=== PATIENT | female | born 1950 | race Caucasian/White ===

== ENCOUNTER → 2018-02-10 13:26 | Outpatient (CLI) | payer MEDICARE, OTHER, SELFPAY ==
--- NOTE | 2018-02-10 | DI.ECHO.S_ITS ---
[place] [facility]---------+ [facility] +---------+ : : [address] : : : : [id number] : : : : Phone: [phone]+ Echocardiogram Report + + :Name: LIU BOUCHER Study Date: 02/10/2018 Height: 64 in : :[facility] Weight: 140 lb : : Gender: Female BSA: 1.7 m2 : :: 1950 Age: 67 yrs BP: 146/86 mmHg: :Reason For Study: Murmur : : Performed By: Neelima Khan : :Referring: JESSY HUTCHINSON : + + Interpretation Summary The left ventricle is normal in size, wall thickness, and systolic function without any focal wall motion abnormalities. The ejection fraction is estimated to be 60-65%. Assessment of diastolic parameters indicates a relaxation abnormality of the left ventricle, consistent with normal filling pressures. The right ventricle grossly appears normal in size with probable normal systolic function. The left atrial size is normal. Right atrial size is normal. There is no significant valvular heart disease. The aortic root is normal size. Procedure: A two-dimensional transthoracic echocardiogram with color flow and Doppler was performed. The study quality was technically adequate. There is no prior echocardiogram noted for this patient. The patient was in normal sinus rhythm during the exam. The patient was in first degree heart block during the exam. The patient had a bundle branch block rhythm during the exam. Left Ventricle: The left ventricle is normal in size, wall thickness, and systolic function without any focal wall motion abnormalities. The ejection fraction is estimated to be 60-65%. Assessment of diastolic parameters indicates a relaxation abnormality of the left ventricle, consistent with normal filling pressures. Right Ventricle: The right ventricle grossly appears normal in size with probable normal systolic function. Atria: The left atrial size is normal. Right atrial size is normal. The interatrial septum is intact with no evidence for an atrial septal defect. Mitral Valve: The mitral valve is normal in structure and function. There is no mitral regurgitation noted. Aortic Valve: The aortic valve is not well visualized. The aortic valve opens well. There is trace aortic regurgitation. Tricuspid Valve: The tricuspid valve is normal in structure and function. No tricuspid regurgitation. Pulmonic Valve: The pulmonic valve is not well seen, but is grossly normal. There is no pulmonic valvular regurgitation. There is no significant valvular heart disease. Great Vessels: The aortic root is normal size. The dimensions of the ascending aorta are normal. The IVC is of normal diameter and collapses greater than 50% with a sniff. This suggests a low right atrial pressure of 3 mm Hg. Pericardium/ Pleura There is no pericardial effusion. There is no pleural effusion. MMode/2D Measurements & Calculations LVIDd: 3.5 cm Ao root diam: 2.8 cm LVIDs: 2.2 cm Aortic Jxn: 2.7 cm FS: 36.9 % asc Aorta Diam: 2.9 cm IVSd: 0.79 cm Ao Arch Diam (Prox Trans): 2.3 cm LVPWd: 0.89 cm LV sparks. diameter/BSA (cm/m^2): 2.1 LV sys. diameter/BSA (cm/m^2): 1.3 LA dimension: 2.7 cm RA long axis: 4.7 cm LA A2 area: 15.4 cm2 RA area: 15.3 cm2 LA A4 area: 15.1 cm2 RA vol: 43.0 ml LA length (vol): 5.1 cm RA : 25.6 ml/m2 LA vol: 38.8 ml IVC diam: 1.3 cm LA vol index: 23.1 ml/m2 Doppler Measurements & Calculations Ao V2 max: 144.5 cm/sec MV E max tra: 75.9 cm/sec Ao V2 mean: 98.9 cm/sec MV A max tra: 104.9 cm/sec Ao max P.4 mmHg MV E/A: 0.72 Ao mean P.4 mmHg Med Peak E' Tra: 5.3 cm/sec Ao V2 VTI: 28.5 cm E/E' med: 14.4 Lat Peak E' Tra: 8.2 cm/sec E/E' lat: 9.2 E/e' average: 11.8 MV dec time: 0.21 sec MV P1/2t: 62.8 msec PA V2 max: 93.5 cm/sec MV P1/2t max tra: 75.4 cm/sec PA V2 mean: 59.2 cm/sec MVA(P1/2t): 3.5 cm2 PA mean P.7 mmHg PA Accel Time: 0.19 sec Reading Physician:GEORGIA
== END ==
PROVIDERS: PCP Physician Assistant; Visit Provider Physician Assistant
DX: R01.1 Cardiac murmur, unspecified (principal)
CPT/HCPCS: 93306

== ENCOUNTER → 2022-12-04 09:06 | Outpatient (CLI) | payer MEDICARE, OTHER, SELFPAY ==
--- NOTE | 2022-12-04 | DI.ECHO.S_ITS ---
[place] +---------+ Hospital +---------+ : : [address] : : : : [id number] : : : : Phone: [phone]+ Echocardiogram Report + + :Name: LIU BOUCHER Study Date: 12/04/2022 Height: 63 in : :[facility] ReadingLocation: Weight: 137 lb : : Gender: Female BSA: 1.6 m2 : :: 1950 Age: 72 yrs BP: 149/86 mmHg: :Reason For Study: HYPERTENSION : :Ordering Physician: MARKUS, : :VANNESA Performed By: Zainab Marie : :Referring: VANNESA RUBIN : + + Interpretation Summary 1) Normal left ventricular thickness, size, wall motion, and systolic function (EF 60-65%). 2) Normal right ventricular size and function. 3) No significant valvular abnormalities. 4) Compared to the Echo done 02/10/2018, no significant change. Procedure: A two-dimensional transthoracic echocardiogram with color flow and Doppler was performed. The study quality was technically adequate. Comparison is made with the echocardiogram of 02/10/2018. The patient was in sinus rhythm with heart rates between 57-83 bpm during the exam. Left Ventricle: The left ventricle is normal in size and wall thickness. The ejection fraction is estimated to be 60-65%. Left ventricular systolic function appears normal without focal wall motion abnormalities. Diastolic parameters suggest a relaxation abnormality of the left ventricle, consistent with probable normal filling pressures. Right Ventricle: The right ventricle is normal in size and function. Atria: The left atrial size is normal. Right atrial size is normal. There is no Doppler evidence for an interatrial shunt. Mitral Valve: The mitral valve is normal in structure and function. There is no mitral regurgitation noted. Aortic Valve: The aortic valve is trileaflet. The aortic valve opens well. There is no aortic valve stenosis. There is trace aortic regurgitation. Tricuspid Valve: The tricuspid valve is normal in structure and function. There is trace tricuspid regurgitation. Pulmonary artery pressures cannot be estimated because of the lack of a measurable TR jet velocity. Pulmonic Valve: The pulmonic valve is not well seen, but is grossly normal. There is no pulmonic valvular regurgitation. Great Vessels: The aortic root is normal size. The dimensions of the ascending aorta are normal. The IVC is of normal diameter and collapses greater than 50% with a sniff. This suggests a low right atrial pressure of 3 mm Hg. Pericardium/ Pleura There is no pericardial effusion. There is no pleural effusion. MMode/2D Measurements & Calculations LVIDd: 3.4 cm LVOT diam: 1.9 cm LVIDs: 2.5 cm Ao root diam: 2.7 cm FS: 27.2 % asc Aorta Diam: 2.7 cm IVSd: 0.86 cm LVPWd: 0.80 cm LV sparks. diameter/BSA (cm/m^2): 2.1 LV sys. diameter/BSA (cm/m^2): 1.5 LA A2 area: 16.4 cm2 RA long axis: 4.0 cm LA A4 area: 15.0 cm2 RA area: 10.9 cm2 LA length (vol): 4.9 cm RA vol: 25.5 ml LA vol: 42.3 ml RA : 15.5 ml/m2 LA vol index: 25.7 ml/m2 IVC diam: 1.7 cm RVD1 (basal): 3.4 cm RVD2 (mid): 2.5 cm TAPSE: 1.9 cm Doppler Measurements & Calculations Ao V2 max: 119.7 cm/sec LVOT Max Tra: 93.3 cm/sec Ao V2 mean: 86.6 cm/sec LV V1 max P.5 mmHg Ao max P.7 mmHg LV V1 VTI: 22.7 cm Ao mean P.3 mmHg SHAKIRA(I,D): 2.4 cm2 Ao V2 VTI: 27.0 cm SHAKIRA(V,D): 2.2 cm2 sev ratio: 0.84 SHAKIRA indexed to BSA (cm^2/m^2): 1.5 MV E max tra: 86.9 cm/sec PA V2 max: 78.9 cm/sec MV A max tra: 85.2 cm/sec PA V2 mean: 56.4 cm/sec MV E/A: 1.0 PA mean P.4 mmHg Med Peak E' Tra: 6.0 cm/sec PA pr(Accel): 27.6 mmHg E/E' med: 14.6 Lat Peak E' Tra: 7.1 cm/sec E/E' lat: 12.3 E/e' average: 13.4 MV dec time: 0.20 sec SV(LVOT): 65.5 ml Reading Physician:12:59 PM
== END ==
PROVIDERS: PCP Physician Assistant; Referring Provider Internal Medicine Cardiovascular Disease; Visit Provider Internal Medicine Cardiovascular Disease
DX: I10 Essential (primary) hypertension (principal)
CPT/HCPCS: 93306

== ENCOUNTER → 2023-05-21 12:32 | Outpatient (CLI) | payer MEDICARE, OTHER, SELFPAY ==
--- NOTE | 2023-05-21 12:35 | DI.US.S_ITS ---
PROCEDURE: US ABDOMEN LIMITED INDICATIONS: SOFT TISSUE MASS IN GROIN TECHNIQUE: Real-time focused scanning was performed of the inguinal region, with image documentation. COMPARISON: None. FINDINGS: By history there is a palpable abnormality in the left groin. Ultrasound findings show the palpable abnormality to correspond to 2 normal-appearing lymph nodes measuring 1.9 x 1.1 x 1.0 centimeters and 1.3 x 1.1 x 0.6 centimeters. No other solid or cystic lesions are identified. IMPRESSION: 1. Palpable abnormality corresponds to 2 lymph nodes in the left groin measuring 1.9 and 1.3 centimeters respectively. Dictated by: Todd Conner M.D. on 05/21/2023 at 15:48 Approved by: Todd Conner M.D. on 05/21/2023 at 15:51
== END ==
PROVIDERS: PCP Nurse Practitioner Family; Referring Provider Nurse Practitioner Family; Visit Provider Nurse Practitioner Family
DX: R19.09 Other intra-abdominal and pelvic swelling, mass and lump (principal)
CPT/HCPCS: 76705

== ENCOUNTER → 2024-04-26 08:45 | Outpatient (CLI) | payer MEDICARE, OTHER, SELFPAY ==
--- NOTE | 2024-04-26 08:47 | DI.US.S_ITS ---
PROCEDURE: US ARTERIAL DUPLEX LE BI INDICATIONS: PURPLE DISCOLORATION OF FEET AND TOES TECHNIQUE: Color and pulse Doppler interrogation was performed of both lower extremity arterial systems, with image documentation. COMPARISON: None. FINDINGS: Right lower extremity: Common iliac artery (distal): 130 cm/sec, with biphasic flow External iliac artery (proximal): 194 cm/sec, with triphasic flow External iliac artery (distal): 215 cm/sec, with triphasic flow Common femoral artery: 200 cm/sec, with triphasic flow. Deep femoral artery: 166 cm/sec, with tri-/biphasic flow. Proximal superficial femoral artery: 133 cm/sec, with triphasic flow. Mid superficial femoral artery: 110 cm/sec, with triphasic flow. Distal superficial femoral artery: 95 cm/sec, with triphasic flow. Popliteal artery: 103 cm/sec, with triphasic flow. Posterior tibial artery: 65 cm/sec, with triphasic flow. Anterior tibial artery/dorsalis pedis: 58 cm/sec, with triphasic flow. Pa-scale imaging description: Moderate degree of partially calcified plaque involving the distal right common femoral artery with elevated velocity at this level. Mild degree of plaque throughout the remainder of the right lower extremity arterial system without significant stenosis. Left lower extremity: Common femoral artery: 169 cm/sec, with triphasic flow. Deep femoral artery: 124 cm/sec, with tri-/biphasic flow. Proximal superficial femoral artery: 138 cm/sec, with triphasic flow. Mid superficial femoral artery: 114 cm/sec, with triphasic flow. Distal superficial femoral artery: 130 cm/sec, with triphasic flow. Popliteal artery: 82 cm/sec, with triphasic flow. Posterior tibial artery: 70 cm/sec, with triphasic flow. Anterior tibial artery/dorsalis pedis: 85 cm/sec, with triphasic flow. Pa-scale imaging description: Mild degree of plaque throughout the left lower extremity arterial system without significant stenosis. IMPRESSION: 1. Eccentric partially calcified plaque involving the distal right common femoral artery resulting in 20-49% stenosis. 2. No other significant stenosis involving bilateral lower extremity arterial systems. Dictated by: Oscar Brunner M.D. on 04/26/2024 at 10:49 Approved by: Oscar Brunner M.D. on 04/26/2024 at 10:58
== END ==
PROVIDERS: PCP Nurse Practitioner Family; Referring Provider Nurse Practitioner Family; Visit Provider Nurse Practitioner Family
DX: I70.201 Unspecified atherosclerosis of native arteries of extremities, right leg (principal); I99.9 Unspecified disorder of circulatory system; R20.9 Unspecified disturbances of skin sensation; R09.89 Other specified symptoms and signs involving the circulatory and respiratory systems
CPT/HCPCS: 93925

== ENCOUNTER 2024-07-18 15:36 | Emergency (ER) | payer MEDICARE, OTHER, SELFPAY ==
[2024-07-18] VITALS (16 sets, daily range): BP systolic 141–194; BP diastolic 70–96; PULSE 66–86; RESP 18–24; TEMP 36.8; O2SAT 97–99; BMI 24.7
--- NOTE | 2024-07-18 16:00 | EKG_ITS ---
[address] [address] [place] [address] Test Date: 2024-07-18 Pat Name: Meg Rucker Department: [facility] Room: Gender: Female Teletype Installer: maria teresa : 1950 Requested By: Order Number: [id number] Reading MD: Sebas Aldana MD Measurements Intervals [place] Rate: 81 P: AL: 278 QRS: -46 QRSD: 78 T: 16 QT: 382 QTc: 443 Interpretive Statements Sinus rhythm with 1st degree AV block with premature ventricular complexes or fusion complexes Left axis deviation Low voltage QRS Inferior infarct , age undetermined Cannot rule out Anteroseptal infarct , age undetermined NO PRIOR TRACING Baseline artifact affects interpretation Electronically Signed On 07-19-2024 8:03:13 PST by Sebas Aldana MD
[2024-07-18 16:15] LABS: Add Manual Diff / Slide Review NO; Basophils Absolute Auto 0 /uL (0-100); Basophils Percent Auto 0.2 % (0-2); Eosinophils Absolute Auto 100 /uL (0-450); Eosinophils Percent Auto 1.8 % (2-4); Hematocrit 41.2 % (36-46); Hemoglobin 13.5 g/dL (12.0-16.0); Lymphocytes Absolute Auto 2200 /uL (1100-4500); Lymphocytes Percent Auto 32.7 % (25-40); Mean Corpuscular HGB Conc 32.6 % (30-36); Mean Corpuscular Volume 91.9 fL (80-100); Monocytes Absolute Auto 700 /uL (0-900); Monocytes Percent Auto 10.2 % (3-14); Neutrophils Absolute Auto 3700 /uL (1500-7000); Neutrophils Percent Auto 55.1 % (50-75); Platelet Count 207 X10^3/uL (150-400); Red Blood Cell Count 4.49 X10^6/uL (4.0-5.2); Red Cell Distribution Width 13.4 % (11.6-14.8); White Blood Cell Count 6.7 X10^3/uL (4.5-11.0)
[2024-07-18 16:28] LABS: Alanine Aminotransferase 18 IU/L (<35); Albumin 4.4 g/dL (3.5-5.0); Albumin Globulin Ratio 1.5 (1.0-2.8); Alkaline Phosphatase 99 U/L (38-126); Aspartate Aminotransferase 30 IU/L (14-36); Bilirubin Total 0.2 mg/dL (0.2-1.3); Blood Urea Nitrogen 20 mg/dL (7-17); Calcium 9.5 mg/dL (8.4-10.2); Carbon Dioxide 30 mmol/L (22-32); Chloride 100 mmol/L (98-107); Estimated Glomerular Filt Rate > 60 mL/min (>60); Glucose 90 mg/dL (80-110); HEMOLYSIS 18 (0-50); Potassium 4.5 mmol/L (3.4-5.1); Sodium 137 mmol/L (137-145); Total Protein 7.4 g/dL (6.3-8.2)
--- NOTE | 2024-07-18 16:33 | PC.NURSE ---
Pt smile asymmetrical. Reports this is normal at her baseline due to her cerebral palsy.
[2024-07-18 16:40] LABS: Troponin I < 0.012 ng/mL (0.01-0.034)
--- NOTE | 2024-07-18 17:04 | ED.DIZZY ---
HPI - Dizziness <Mayda Oden DO - Last Filed: 07/18/24 17:08> General Chief Complaint: Dizziness Stated Complaint: Elevated BP Time Seen by Provider: 07/18/24 17:03 Source: patient, RN notes reviewed and old records reviewed Mode of arrival: Ambulatory Limitations: no limitations Related Data Allergies Allergy/AdvReac Type Severity Reaction Status Date / Time Sulfa (Sulfonamide Allergy Anaphylaxis Verified 07/18/24 15:53 Antibiotics) <Bang Baker MD - Last Filed: 07/18/24 19:11> History of Present Illness HPI Narrative: 74-year-old female here for evaluation of dizziness and concerns for elevated blood pressure readings at home. Review of Systems <Mayda Oden DO - Last Filed: 07/18/24 17:08> Review of Systems ROS Unobtainable: All systems reviewed & are unremarkable except as noted in HPI and below Patient History <Mayda Oden DO - Last Filed: 07/18/24 17:08> Social History Smoking Status: Never smoker Smoking Status: Never smoker Exam <Mayda Oden DO - Last Filed: 07/18/24 17:08> Initial Vital Signs Initial Vital Signs: Vital Signs Temperature 98.2 F 07/18/24 15:48 Pulse Rate 86 07/18/24 15:48 Respiratory Rate 18 07/18/24 15:48 Blood Pressure 141/75 H 07/18/24 15:48 Pulse Oximetry 97 07/18/24 15:48 Oxygen Delivery Method Room Air 07/18/24 15:48 <Bang Baker MD - Last Filed: 07/18/24 19:11> Initial Vital Signs Initial Vital Signs: Vital Signs Temperature 98.2 F 07/18/24 15:48 Pulse Rate 86 07/18/24 15:48 Respiratory Rate 18 07/18/24 15:48 Blood Pressure 141/75 H 07/18/24 15:48 Pulse Oximetry 97 07/18/24 15:48 Oxygen Delivery Method Room Air 07/18/24 15:48 Course <Mayda Oden DO - Last Filed: 07/18/24 17:08> Orders Ordered: ED Orders 07/18/24 15:54 EKG-12 Lead Stat 07/18/24 16:00 Complete Blood Count AUTO DIFF Stat Comprehensive Metabolic Panel Stat Troponin I Stat Vital Signs Vital signs: Vital Signs - 8 hr 07/18/24 15:48 07/18/24 16:02 07/18/24 16:03 Temperature 98.2 F Pulse Rate 86 76 Respiratory Rate 18 Blood Pressure 141/75 H 194/96 H Pulse Oximetry 97 98 Oxygen Delivery Method Room Air 07/18/24 16:20 07/18/24 16:20 07/18/24 16:30 Temperature Pulse Rate 74 68 Respiratory Rate 22 22 Blood Pressure 175/83 H Pulse Oximetry 98 99 Oxygen Delivery Method 07/18/24 16:30 07/18/24 17:00 07/18/24 17:01 Temperature Pulse Rate 66 Respiratory Rate 24 Blood Pressure 168/80 H 181/70 H Pulse Oximetry 98 Oxygen Delivery Method 07/18/24 17:01 07/18/24 17:20 07/18/24 17:20 Temperature Pulse Rate 69 68 Respiratory Rate 22 21 Blood Pressure 171/70 H Pulse Oximetry 98 99 Oxygen Delivery Method Room Air 07/18/24 17:30 07/18/24 17:30 07/18/24 18:00 Temperature Pulse Rate 69 Respiratory Rate 21 Blood Pressure 153/71 H 164/77 H Pulse Oximetry 99 Oxygen Delivery Method 07/18/24 18:00 07/18/24 18:30 07/18/24 18:30 Temperature Pulse Rate 70 66 Respiratory Rate 20 22 Blood Pressure 156/87 H Pulse Oximetry 98 98 Oxygen Delivery Method 07/18/24 18:43 07/18/24 18:43 Temperature Pulse Rate 74 Respiratory Rate 24 Blood Pressure 185/85 H Pulse Oximetry 99 Oxygen Delivery Method Room Air <Bang Baker MD - Last Filed: 07/18/24 19:11> Orders Ordered: ED Orders 07/18/24 15:54 EKG-12 Lead Stat 07/18/24 16:00 Complete Blood Count AUTO DIFF Stat Comprehensive Metabolic Panel Stat Troponin I Stat Vital Signs Vital signs: Vital Signs - 8 hr 07/18/24 15:48 07/18/24 16:02 07/18/24 16:03 Temperature 98.2 F Pulse Rate 86 76 Respiratory Rate 18 Blood Pressure 141/75 H 194/96 H Pulse Oximetry 97 98 Oxygen Delivery Method Room Air 07/18/24 16:20 07/18/24 16:20 07/18/24 16:30 Temperature Pulse Rate 74 68 Respiratory Rate 22 22 Blood Pressure 175/83 H Pulse Oximetry 98 99 Oxygen Delivery Method 07/18/24 16:30 07/18/24 17:00 07/18/24 17:01 Temperature Pulse Rate 66 Respiratory Rate 24 Blood Pressure 168/80 H 181/70 H Pulse Oximetry 98 Oxygen Delivery Method 07/18/24 17:01 07/18/24 17:20 07/18/24 17:20 Temperature Pulse Rate 69 68 Respiratory Rate 22 21 Blood Pressure 171/70 H Pulse Oximetry 98 99 Oxygen Delivery Method Room Air 07/18/24 17:30 07/18/24 17:30 07/18/24 18:00 Temperature Pulse Rate 69 Respiratory Rate 21 Blood Pressure 153/71 H 164/77 H Pulse Oximetry 99 Oxygen Delivery Method 07/18/24 18:00 07/18/24 18:30 07/18/24 18:30 Temperature Pulse Rate 70 66 Respiratory Rate 20 22 Blood Pressure 156/87 H Pulse Oximetry 98 98 Oxygen Delivery Method 07/18/24 18:43 07/18/24 18:43 Temperature Pulse Rate 74 Respiratory Rate 24 Blood Pressure 185/85 H Pulse Oximetry 99 Oxygen Delivery Method Room Air MDM - Dizziness <Mayda Oden, DO - Last Filed: 07/18/24 17:08> Lab Data 07/18/24 16:00 07/18/24 16:00 Labs: Lab Results 07/18/24 Range/Units 16:00 WBC 6.7 (4.5-11.0) X10^3/uL RBC 4.49 (4.0-5.2) X10^6/uL Hgb 13.5 (12.0-16.0) g/dL Hct 41.2 (36-46) % MCV 91.9 (80-100) fL MCH 30.0 (26-34) PG MCHC 32.6 (30-36) % RDW 13.4 (11.6-14.8) % Plt Count 207 (150-400) X10^3/uL Neut % (Auto) 55.1 (50-75) % Lymph % (Auto) 32.7 (25-40) % [place] % (Auto) 10.2 (3-14) % Eos % (Auto) 1.8 L (2-4) % Baso % (Auto) 0.2 (0-2) % Neut # (Auto) 3700 (8091-7811) /uL Lymph # (Auto) 2200 (9785-6843) /uL [place] # (Auto) 700 (0-900) /uL Eos # (Auto) 100 (0-450) /uL Baso # (Auto) 0 (0-100) /uL Sodium 137 (137-145) mmol/L Potassium 4.5 (3.4-5.1) mmol/L Chloride 100 (98-107) mmol/L Carbon Dioxide 30 (22-32) mmol/L BUN 20 H (7-17) mg/dL Creatinine 0.91 (0.52-1.04) mg/dL Estimated GFR > 60 (>60) mL/min BUN/Creatinine Ratio 22.0 (6-22) Glucose 90 (80-110) mg/dL Calcium 9.5 (8.4-10.2) mg/dL Total Bilirubin 0.2 (0.2-1.3) mg/dL AST 30 (14-36) IU/L ALT 18 (<35) IU/L Alkaline Phosphatase 99 (38-126) U/L Troponin I < 0.012 (0.01-0.034) ng/mL Total Protein 7.4 (6.3-8.2) g/dL Albumin 4.4 (3.5-5.0) g/dL Globulin 3.0 (1.7-4.1) g/dL Albumin/Globulin Ratio 1.5 (1.0-2.8) Urine Dip Bedside Urine Glucose Negative Bedside Urine Bilirubin - Negative Bedside Urine Ketone - Negative Urine Specific Sophia 1.005 Bedside Urine Occult Blood - Negative Bedside Urine pH 7.0 Bedside Urine Protein - Negative Bedside Urine Urobilinogen - Negative Bedside Urine Nitrite - Negative Bedside Urine Leukocytes - Negative Esterase ECG Data Attestation: I personally reviewed and interpreted this ECG as follows: Prior ECG tracings: not available for review Interpretation: Sinus rhythm first-degree AV block premature ventricular complexes rate 81 MO 278 QRS is 78 QTC of 443, no acute ST elevation depression noted patient does have some motion artifact. No priors. MDM Narrative Medical decision making narrative: EKG sinus rhythm first-degree AV block Labs normal white count hemoglobin/hematocrit, platelets are normal low eosinophils. Labs show BUN 20 otherwise normal electrolytes creatinine of 0.91 glucose of 90 calcium 9.5 LFTs are negative troponins less than 0.012. CXR <Bang Baker MD - Last Filed: 07/18/24 19:11> Lab Data Attestation: I reviewed the patient's lab results. Lab results narrative: White blood cell count 6700, hemoglobin 13.5, platelets adequate. Basic metabolic panel unremarkable. Liver functions normal. Troponin negative/unmeasurable. Labs: Lab Results 07/18/24 Range/Units 16:00 WBC 6.7 (4.5-11.0) X10^3/uL RBC 4.49 (4.0-5.2) X10^6/uL Hgb 13.5 (12.0-16.0) g/dL Hct 41.2 (36-46) % MCV 91.9 (80-100) fL MCH 30.0 (26-34) PG MCHC 32.6 (30-36) % RDW 13.4 (11.6-14.8) % Plt Count 207 (150-400) X10^3/uL Neut % (Auto) 55.1 (50-75) % Lymph % (Auto) 32.7 (25-40) % [place] % (Auto) 10.2 (3-14) % Eos % (Auto) 1.8 L (2-4) % Baso % (Auto) 0.2 (0-2) % Neut # (Auto) 3700 (0150-3897) /uL Lymph # (Auto) 2200 (3245-0713) /uL [place] # (Auto) 700 (0-900) /uL Eos # (Auto) 100 (0-450) /uL Baso # (Auto) 0 (0-100) /uL Sodium 137 (137-145) mmol/L Potassium 4.5 (3.4-5.1) mmol/L Chloride 100 (98-107) mmol/L Carbon Dioxide 30 (22-32) mmol/L BUN 20 H (7-17) mg/dL Creatinine 0.91 (0.52-1.04) mg/dL Estimated GFR > 60 (>60) mL/min BUN/Creatinine Ratio 22.0 (6-22) Glucose 90 (80-110) mg/dL Calcium 9.5 (8.4-10.2) mg/dL Total Bilirubin 0.2 (0.2-1.3) mg/dL AST 30 (14-36) IU/L ALT 18 (<35) IU/L Alkaline Phosphatase 99 (38-126) U/L Troponin I < 0.012 (0.01-0.034) ng/mL Total Protein 7.4 (6.3-8.2) g/dL Albumin 4.4 (3.5-5.0) g/dL Globulin 3.0 (1.7-4.1) g/dL Albumin/Globulin Ratio 1.5 (1.0-2.8) Urine Dip Bedside Urine Glucose Negative Bedside Urine Bilirubin - Negative Bedside Urine Ketone - Negative Urine Specific Sophia 1.005 Bedside Urine Occult Blood - Negative Bedside Urine pH 7.0 Bedside Urine Protein - Negative Bedside Urine Urobilinogen - Negative Bedside Urine Nitrite - Negative Bedside Urine Leukocytes - Negative Esterase Discharge Plan Departure Referrals: Ruthie Henry ARNP [Primary Care Provider] -
--- NOTE | 2024-07-18 19:12 | ED.GENADULT ---
HPI - General Adult General Chief complaint: Dizziness Stated complaint: Elevated BP Time Seen by Provider: 07/18/24 17:03 Source: patient Mode of arrival: Ambulatory History of Present Illness HPI narrative: 74-year-old female with history of cerebral palsy congenital, motor spasms, history of hypertension having been on numerous medications in the past that were either ineffective or discontinued due to side effects, most recently on clonidine monotherapy 0.1 mg orally twice a day, home blood pressure readings elevated today systolic blood pressure 180-200 range, diastolic readings 100-120 readings, although limited by her spasticity, unclear if these or falls readings. She took her clonidine dose this morning, has not yet taken her evening dose. She denies any weakness, no focal weakness, no changes in vision or chronic speech impediment problems, at bedside believes that there is no neurological new changes, believes that she is at her baseline. Nursing notes mentioned dizziness, she denies having any dizziness or weakness symptoms, no shaking seizure-like activity, she has tremulousness she attributes to spasticity from her cerebral palsy, that seems to be at baseline per patient/. 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 Lives at home with . Related Data Allergies Allergy/AdvReac Type Severity Reaction Status Date / Time Sulfa (Sulfonamide Allergy Anaphylaxis Verified 07/18/24 15:53 Antibiotics) Patient History Social History Smoking Status: Never smoker Smoking Status: Never smoker Exam Narrative Exam Narrative: GENERAL: Well-developed patient, in mild distress. HEAD: Atraumatic. Normocephalic. EYES: Pupils equal round and reactive. Extraocular motions intact. No scleral icterus. No injection or drainage. ENT: Nose without bleeding, purulent drainage. Throat without erythema, tonsillar hypertrophy or exudate. Airway patent. NECK: Trachea midline. Non tender CARDIOVASCULAR: Regular rate and rhythm without murmurs, gallops, or rubs. RESPIRATORY: Clear to auscultation. Breath sounds equal bilaterally. No wheezes, rales, or rhonchi. GASTROINTESTINAL: Abdomen soft, non-tender, nondistended. EXTREMITIES: No edema or joint tenderness. BACK: Nontender without deformity or crepitance. No flank tenderness. NEURO: AOx3. Motor functions grossly nonfocal SKIN: No rash or erythema of visible areas Initial Vital Signs Initial Vital Signs: Vital Signs Temperature 98.2 F 07/18/24 15:48 Pulse Rate 86 07/18/24 15:48 Respiratory Rate 18 07/18/24 15:48 Blood Pressure 141/75 H 07/18/24 15:48 Pulse Oximetry 97 07/18/24 15:48 Oxygen Delivery Method Room Air 07/18/24 15:48 Course Orders Ordered: ED Orders 07/18/24 15:54 EKG-12 Lead Stat 07/18/24 16:00 Complete Blood Count AUTO DIFF Stat Comprehensive Metabolic Panel Stat Troponin I Stat Vital Signs Vital signs: Vital Signs - 8 hr 07/18/24 19:30 07/18/24 19:31 07/18/24 19:31 Pulse Rate 70 69 Respiratory Rate 18 20 Blood Pressure 188/86 H Pulse Oximetry 98 97 Medical Decision Making Lab Data Lab results reviewed: Yes I reviewed the patient's lab results. Lab results narrative: White blood cell count 6700, hemoglobin 13.5, platelets adequate. Basic metabolic panel unremarkable. Glucose 90 noted. Liver functions normal. Urine dip negative. Troponin negative/unmeasurable. 07/18/24 16:00 07/18/24 16:00 Labs: Lab Results 07/18/24 Range/Units 16:00 WBC 6.7 (4.5-11.0) X10^3/uL RBC 4.49 (4.0-5.2) X10^6/uL Hgb 13.5 (12.0-16.0) g/dL Hct 41.2 (36-46) % MCV 91.9 (80-100) fL MCH 30.0 (26-34) PG MCHC 32.6 (30-36) % RDW 13.4 (11.6-14.8) % Plt Count 207 (150-400) X10^3/uL Neut % (Auto) 55.1 (50-75) % Lymph % (Auto) 32.7 (25-40) % [place] % (Auto) 10.2 (3-14) % Eos % (Auto) 1.8 L (2-4) % Baso % (Auto) 0.2 (0-2) % Neut # (Auto) 3700 (9076-9612) /uL Lymph # (Auto) 2200 (8007-1391) /uL [place] # (Auto) 700 (0-900) /uL Eos # (Auto) 100 (0-450) /uL Baso # (Auto) 0 (0-100) /uL Sodium 137 (137-145) mmol/L Potassium 4.5 (3.4-5.1) mmol/L Chloride 100 (98-107) mmol/L Carbon Dioxide 30 (22-32) mmol/L BUN 20 H (7-17) mg/dL Creatinine 0.91 (0.52-1.04) mg/dL Estimated GFR > 60 (>60) mL/min BUN/Creatinine Ratio 22.0 (6-22) Glucose 90 (80-110) mg/dL Calcium 9.5 (8.4-10.2) mg/dL Total Bilirubin 0.2 (0.2-1.3) mg/dL AST 30 (14-36) IU/L ALT 18 (<35) IU/L Alkaline Phosphatase 99 (38-126) U/L Troponin I < 0.012 (0.01-0.034) ng/mL Total Protein 7.4 (6.3-8.2) g/dL Albumin 4.4 (3.5-5.0) g/dL Globulin 3.0 (1.7-4.1) g/dL Albumin/Globulin Ratio 1.5 (1.0-2.8) Urine Dip Bedside Urine Glucose Negative Bedside Urine Bilirubin - Negative Bedside Urine Ketone - Negative Urine Specific [place] 1.005 Bedside Urine Occult Blood - Negative Bedside Urine pH 7.0 Bedside Urine Protein - Negative Bedside Urine Urobilinogen - Negative Bedside Urine Nitrite - Negative Bedside Urine Leukocytes - Negative Esterase Point of care testing: Urine Dip Bedside Urine Glucose Negative Bedside Urine Bilirubin - Negative Bedside Urine Ketone - Negative Urine Specific [place] 1.005 Bedside Urine Occult Blood - Negative Bedside Urine pH 7.0 Bedside Urine Protein - Negative Bedside Urine Urobilinogen - Negative Bedside Urine Nitrite - Negative Bedside Urine Leukocytes - Negative Esterase ECG Data Attestation: I personally reviewed and interpreted this ECG as follows: Interpretation: 1600, normal sinus rhythm with first-degree AV block, ventricular rate 81. No obvious ST segment elevation but limited by significant motion artifact. MI 278, QRS 78, QTC 443. MDM Narrative Medical decision making narrative: 74-year-old female with history of cerebral palsy, spasticity, tremulousness, history of hypertension that has historically been difficult to control, most recently on monotherapy clonidine, took morning dose, not yet taken her evening dose, having blood pressure readings that were elevated at home monitor. Baseline neurological state per patient and at bedside. Blood pressure readings here reassuring without specific treatment. EKG and screening studies were sent from triage, motion artifact on EKG, first-degree AV block however was noted, on clonidine. Screening labs unremarkable. Last blood pressure 166/72 here, offered giving patient her evening dose clonidine 0.1 mg by mouth, she would rather go home and take her evening dose at home. concurs with this plan. No further workup for now. Advised to contact her primary care provider tomorrow Friday morning during open hours, to further address blood pressure control issues. Given first-degree AV block, we will not advise increased dose of clonidine, also she seems to have some side effects of dry mouth that could increased, there may not be an indication for any increased clonidine dose, perhaps her home cuff readings are erroneous, she was advised to bring her home blood pressure cuff system to her next clinic appointment to evaluate and calibrate. Continue same regimen of clonidine monotherapy for blood pressure control. Home with , follow up with PCP for further evaluation for now. Return precautions advised Discharge Plan Departure Patient Disposition: Home Clinical Impression: Hypertension, History of cerebral palsy Activity Restrictions/Additional Instructions: History of cerebral palsy congenital, baseline spasticity and speech difficulties, using walker for ambulation at baseline. History of hypertension that has been difficult to control in the past, various medications have been used in combination that were discontinued due to side effects or lack of effectiveness. Most recently had been taking clonidine 0.1 mg twice daily as a monotherapy regimen, no other blood pressure medicines, you took this morning's dose. Elevated blood pressure readings at home noted. Here in the emergency department there were evaluations with EKG and blood tests, all reassuring. First-degree AV block noted on EKG. Blood pressure here without specific treatment 160s/70s, not actionable now, advised to continue your current regimen of clonidine for now. Follow up with your regular doctor advised early this week. Consider bringing your home blood pressure cuff to clinic to correlate and calibrate with clinic based cuff measurements. For now continue the clonidine medical regimen. Offered evening dose of clonidine now, you preferred to take your evening dose at home. Home with . Follow up with your regular provider this week, call for an appointment tomorrow morning Friday during regular hours. Return to this/nearest emergency department for any change worsening symptoms or any concerns prior Referrals: Ruthie Henry ARNP [Primary Care Provider] - Stand Alone Forms: Patient Portal/API/Survey
== END 2024-07-18 19:48 | disposition home or self-care (01) ==
PROVIDERS: Emergency Medicine; Emergency Provider Emergency Medicine; PCP Nurse Practitioner Family
DX: I10 Essential (primary) hypertension (principal); G80.9 Cerebral palsy, unspecified
CPT/HCPCS: 36415; 80053; 81003; 84484; 85025; 93005; 93010; 99283; 99284

== ENCOUNTER → 2024-08-23 11:08 | Outpatient (CLI) | payer MEDICARE, OTHER, SELFPAY ==
--- NOTE | 2024-08-23 11:12 | DI.RAD.S_ITS ---
PROCEDURE: XR CERVICAL SPINE 2V OR 3V INDICATIONS: Pain in unspecified joint TECHNIQUE: 4 view(s) of the cervical spine were acquired. COMPARISON: None. FINDINGS: Bones: No fractures or dislocations to the T1 level. There is mild reversal of normal cervical lordosis. Grade 1 anterolisthesis of C3 on C4 and C4 on C5 is noted with multilevel anterior osteophytosis throughout the cervical spine and moderate C4-5 and severe C5-6 and C6-7 intervertebral disc space height loss. The lateral masses of C1 are poorly visualized on the odontoid view. No suspicious bony lesions. Soft tissues: No prevertebral soft tissue swelling. IMPRESSION: Degenerative change of the cervical spine without evidence of acute osseous abnormality. Dictated by: Harpreet Cooper M.D. on 08/23/2024 at 22:44 Approved by: Harpreet Cooper M.D. on 08/23/2024 at 22:46
== END ==
PROVIDERS: PCP Nurse Practitioner Family; Referring Provider Nurse Practitioner Family; Visit Provider Nurse Practitioner Family
DX: M47.812 Spondylosis without myelopathy or radiculopathy, cervical region (principal); M43.12 Spondylolisthesis, cervical region; M25.50 Pain in unspecified joint
CPT/HCPCS: 72040

== ENCOUNTER → 2024-10-15 10:10 | Outpatient (CLI) | payer MEDICARE, OTHER, SELFPAY ==
--- NOTE | 2024-10-15 10:12 | DI.RAD.S_ITS ---
PROCEDURE: FL BARIUM SWALLOW INDICATIONS: SX OF DYSARTHRIA/CHRONIC COUGH/CEREBRAL PALSY COMPARISON: None. FINDINGS: The exam is somewhat limited due to the patient's condition with limited positioning. There were some tertiary non propulsive contractions in the mid and distal esophagus which may be a cause of chest discomfort, dysphagia. Otherwise contrast passed through the esophagus into the stomach. Stomach was grossly normal and contrast passed into the duodenum and proximal jejunum with limited imaging. Mild gastroesophageal reflux was noted to the level of the mid esophagus intermittently most notably when the patient was supine or left lateral decubitus. No hiatal hernia was elicited Function: There is normal transit of a calibrated barium tablet through the esophagus into the stomach. Morphology: Air-contrast images demonstrate normal mucosal morphology. Single contrast views show no esophageal strictures, extrinsic mass effects, or diverticula. IMPRESSION: Intermittent tertiary non propulsive contractions as discussed above. Mild gastroesophageal reflux. Limited exam. Dictated by: Garrett Neal M.D. on 10/15/2024 at 21:24 Approved by: Garrett Neal M.D. on 10/15/2024 at 21:26
== END ==
PROVIDERS: PCP Nurse Practitioner Family; Referring Provider Radiology Diagnostic Radiology; Visit Provider Radiology Diagnostic Radiology
DX: G80.9 Cerebral palsy, unspecified (principal); K21.9 Gastro-esophageal reflux disease without esophagitis; R47.1 Dysarthria and anarthria; R05.3 Chronic cough
CPT/HCPCS: 74220

== ENCOUNTER → 2024-12-01 13:54 | Outpatient (CLI) | payer MEDICARE, OTHER, SELFPAY ==
--- NOTE | 2024-12-01 13:59 | DI.RAD.S_ITS ---
PROCEDURE: XR CHEST 2V INDICATIONS: Dysphagia, unspecified TECHNIQUE: 2 views of the chest were acquired. COMPARISON: None. FINDINGS: Surgical changes and devices: None. Lungs and pleura: Lungs are clear. No pleural effusions or pneumothorax. Mediastinum: Mediastinal contours are normal. Heart size is normal. Bones and chest wall: No suspicious bony abnormalities. Soft tissues appear unremarkable. IMPRESSION: No acute cardiopulmonary abnormality is seen. Dictated by: Radha Chanel M.D. on 12/01/2024 at 15:48 Approved by: Radha Chanel M.D. on 12/01/2024 at 15:48
== END ==
PROVIDERS: PCP Nurse Practitioner Family; Referring Provider Nurse Practitioner Family; Visit Provider Nurse Practitioner Family
DX: R13.10 Dysphagia, unspecified (principal); R05.3 Chronic cough
CPT/HCPCS: 71046